=== PATIENT | female | born 1965 | race Caucasian/White ===

== ENCOUNTER 2016-11-20 10:02 | Emergency (ER) | payer MEDICAID ==
[~2016-11-20] VITALS: Ht 160 cm; Wt 75.0 kg
[2016-11-20 10:17] VITALS: Ht 160 cm; Wt 75.0 kg
[2016-11-20] MEDS ORDERED: ONDANSETRON (ODT) 4 MG TAB ODT STA (10:33)
[2016-11-20] MEDS ORDERED: ACETAMINOPHEN 325 MG TAB PO ONE (11:00)
[2016-11-20] MEDS ORDERED: MECLIZINE 12.5 MG TAB PO ONE (11:00)
--- NOTE | 2016-11-20 11:12 | RADRPT ---
PROCEDURE: CT Brain without. CLINICAL INDICATION: Headache. Dizziness. TECHNIQUE: A CT of the brain was performed on a multi-slice CT scanner utilizing axial sections fr om the skull base through the vertex without contrast. Coronal and sagittal reconstructed images w ere provided. One or more of the following does reduction techniques were used: Automated exposure control; adjustment of the mA and/or kV according to patient size; use of the aorta of reconstructi on technique. Images were reviewed on a high-resolution PACS workstation. The exam CTDI = 44.8 mGy. The exam DLP = 630.2 mGy-cm. COMPARISON: None available FINDINGS: The ventricles and sulci are symmetric and normal in size and morphology. There is no evidence of i ntracranial hemorrhage, mass effect, edema or midline shift. No abnormal intra-axial or extra-axial fluid collections are seen. The espino/white matter differentiation is well preserved. 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 The osseous structures and visualized sinuses are unremarkable. The mastoid air cells are clear. Th e surrounding soft tissue scalp and bony calvarium are intact and normal. IMPRESSION: 1. No CT evidence of acute intracranial pathology. 2. 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 RPTAT: KK .Chan Meadows MD, MD Date Time Electronically viewed and signed by .Chan Meadows MD, MD on 11/20/2016 11:12 .B/
[2016-11-20] MEDS ORDERED: IBUP-1542 PO (11:22)
[2016-11-20] MEDS ORDERED: MECL12.574 PO (11:22)
[2016-11-20] MEDS ORDERED: ONDA8TAB14 PO (11:22)
[2016-11-20 11:23] LABS: URINE BLOOD (Dip) POC 2+ (NEGATIVE)
--- NOTE | 2016-11-20 11:24 | ERD ---
ER Documentation Chief Complaint Date/Time DATE: 11/20/16 TIME: 11:22 Chief Complaint headache and dizziness x 4 days and left sided faical pain HPI This 51-year-old female presents with headache and dizziness for last 4 days. The pain in the left side of her neck and radiates to the occipital. She also is spinning type dizziness. It is somewhat worse when she moves her head. She denies any bowel or bladder incontinence, weakness, visual changes, vomiting, although she does have some mild nausea associated dizziness. She denies any recent illnesses or fevers. ROS All systems reviewed and are negative except as per history of present illness. Medications Home Meds Active Scripts Ondansetron (Ondansetron Odt) 8 Mg Tab.rapdis, 8 MG PO Q6H Y for NAUSEA AND/OR VOMITING, #6 TAB Prov:MYLES WORKMAN MD 11/20/16 Ibuprofen* (Motrin*) 600 Mg Tab, 600 MG PO Q6, #20 TAB Prov:MYLES WORKMAN MD 11/20/16 Meclizine Hcl* (Antivert*) 12.5 Mg Tab, 12.5 MG PO Q6H Y for DIZZINESS, #15 TAB Prov:MYLES WORKMAN MD 11/20/16 PMhx/Soc Medical and Surgical Hx: pt denies Medical Hx, pt denies Surgical Hx Hx Alcohol Use: No Hx Substance Use: No Hx Tobacco Use: No Smoking Status: Never smoker Physical Exam Vitals Vital Signs Date Time Temp Pulse Resp B/P Pulse Ox O2 Delivery O2 Flow Rate FiO2 11/20/16 10:17 98.0 80 18 155/85 98 Physical Exam Const: [] Alert, [id number]. Head: Atraumatic Eyes: Normal Conjunctiva ENT: Normal External Ears, Nose and Mouth. Neck: Full range of motion..~ No meningismus. There is some tenderness at the base of the except on the left C1-C2 paraspinous muscles. Resp: Clear to auscultation bilaterally Cardio: Regular rate and rhythm, no murmurs Abd: Soft, non tender, non distended. Normal bowel sounds Skin: No petechiae or rashes Back: No midline or flank tenderness Ext: No cyanosis, or edema Neur: Awake and alert. Mildly positive reproducible vertigo to the right. Cranial nerves II through XII grossly intact. No cerebellar signs. Psych: Normal Mood and Affect Results 24 hrs Current Medications Medications (Trade) Dose Ordered Sig/Tian Route PRN Reason Start Time Stop Time Status Last Admin Dose Admin Acetaminophen (Tylenol Tab) 650 mg ONCE ONCE PO 11/20/16 11:00 11/20/16 11:01 DC 11/20/16 10:39 Ondansetron HCl (Zofran Odt) 8 mg ONCE STAT ODT 11/20/16 10:33 11/20/16 10:35 DC 11/20/16 10:40 Meclizine HCl (Antivert) 25 mg ONCE ONCE PO 11/20/16 11:00 11/20/16 11:01 DC 11/20/16 10:40 Procedures/MDM Patient presents with neck pain rating to a separate in addition to signs of reproducible vertigo. Suspicion for central vertigo is very low but given the uncertain cause of headache CT brain was performed which is read as normal. Patient's symptoms may be due to impingement of cervical radicular nerve. There is no signs or symptoms do not suggest meningitis, neurologic deficit, central lesions or central vertigo. She will be discharged home a short course of Zofran and Antivert and ibuprofen instructions to follow-up with her primary care doctor. The patient was stable with no new complaints during the ER course. Clinically, there is no current evidence to suggest meningitis, sepsis, acute abdomen, pneumonia, acute coronary syndrome, pulmonary embolism, or any other emergent condition appearing to require further evaluation or hospitalization. The patient should certainly return for any new or worsening symptoms per the aftercare instructions. They should otherwise follow-up with her primary care doctor for reevaluation this week. Departure Diagnosis: Primary Impression: Vertigo Additional Impression: Headache Headache type: unspecified Headache chronicity pattern: unspecified pattern Intractability: not intractable Qualified Code: R51 - Nonintractable headache, unspecified chronicity pattern, unspecified headache type Condition: Stable Patient Instructions: Headache, Unspecified, Neck Pain, No Trauma, Vertigo, Unspecified [facility]: [facility] Usted se joe hecho un examen mdico de control que le indica que no est en yi condicin que requiera tratamiento urgente en el Departamento de Emergencia. Un estudio ms profundo y el tratamiento de hilario condicin pueden esperar sin ningn riesgo hasta que usted sea atendida/o en el consultorio de hilario mdico o yi cl kolton. Es responsabilidad suya arreglar yi buster para el seguimiento del andria. MANEJO DE CONDICIONES NO URGENTES EN EL FUTURO 1) Si usted tiene un mdico de atencin primaria: Usted debera llamar a hilario mdico de atencin primaria antes de venir al departamento de emergencia. Despus de las horas de consultorio, hilario doctor o hilario asociado/a est disponible por telfono. El mdico o enfermero de jules en el servicio telefnico puede asesorarle por snehal medio para atender el problema, o andria contrario se puede programar yi bustre. 2) Si usted no tiene un mdico de atencin primaria: Llame al mdico o clnica de referencia que aparece abajo satish las horas de consultorio para hacer yi buster para que le vean. CLINICAS: [facility] [phone] [facility] [phone] [facility]. [facility] [phone] [address] [facility]. [facility] [phone] [facility]. [place] [id number] [phone] [facility]. [phone] [address] Additional Instructions: Examines normal hoy. Cheque otro vez con hilario doctor primario en el proximo ceron or regresa para mas o nueva simptomas. MYLES WORKMAN MD November 20, 2016 11:24
== END 2016-11-20 11:37 | disposition home or self-care (01) ==
LOC: FTE 10:02
DX: R42 Dizziness and giddiness (principal)
CPT/HCPCS: 70450; 81003; Z7502; Z7610

== ENCOUNTER 2017-09-21 16:55 | Emergency (ER) | END 2017-09-21 22:27 | disposition home or self-care (01) ==